=== PATIENT | female | born 1950 | race Caucasian/White ===

== ENCOUNTER 2019-02-19 09:24 | Emergency (ER) | payer MEDICARE ==
[2019-02-19 09:45] VITALS: BP 133/65
--- NOTE | 2019-02-19 10:29 | UC ---
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 States past week, increased pain. 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 Using cane from home now to help with walking. " -this happened several months ago and resolved. then started again last week. has been popping when trying to extend. gave out last night when she had full weight on left leg climbing onto small tractor. -she has no contrindictaion to NSAIDs she reports - History of Current Complaint Chief Complaint: UCLowerExtremity Stated Complaint: LT KNEE COMPLAINT Time Seen by Provider: 02/19/19 09:46 Pain Intensity: 8 - Allergies/Home Medications Allergies/Adverse Reactions: Allergies Allergy/AdvReac Type Severity Reaction Status Date / Time No Known Allergies Allergy Verified 02/19/19 09:38 Home Medications: Home Medications Albuterol HFA INHALER* [Ventolin HFA Inhaler*] 1 - 2 puff INH Q4H PRN 02/19/19 [ History Confirmed 02/19/19] Levothyroxine TAB* [Synthroid TAB*] 50 mcg PO DAILY 02/19/19 [History Confirmed 02/19/19] PMH/Surg Hx/FS Hx/Imm Hx Previously Healthy: Yes Endocrine History: Hypothyroidism - Surgical History Surgical History: Yes Surgery Procedure, Year, and Place: Left eye surgery, cataract surgery left eye , cataract surgery right eye, sinus surgery. - Social History Alcohol Use: None Substance Use Type: None Smoking Status (MU): Never Smoked Tobacco Review of Systems All Other Systems Reviewed And Are Negative: Yes Constitutional: Positive: Negative Skin: Positive: Negative Eyes: Positive: Negative ENT: Positive: Negative Respiratory: Positive: Negative Cardiovascular: Positive: Negative Gastrointestinal: Positive: Negative Genitourinary: Positive: Negative Motor: Positive: Decreased ROM, Weakness Neurovascular: Positive: Negative Musculoskeletal: Positive: Arthralgia, Decreased ROM. Negative: Calf Tenderness Neurological: Positive: Negative Psychological: Positive: Negative Is Patient Immunocompromised?: No Physical Exam Triage Information Reviewed: Yes Appearance: Well-Appearing, No Pain Distress, Well-Nourished Vital Signs: Initial Vital Signs Temp 99 F 02/19/19 09:40 Pulse 95 02/19/19 09:40 Resp 18 07/13/19 09:40 BP 133/65 02/19/19 09:40 Pulse Ox 98 02/19/19 09:40 Eye Exam: Normal Respiratory Exam: Normal Respiratory: Positive: Lungs clear Cardiovascular Exam: Normal Cardiovascular: Positive: RRR Musculoskeletal: Positive: Other: - left knee tneder anteriorly and postreiorly. no calf swelling or tenderness. no erythema. ROM limited d/t pain. Neurological Exam: Normal Psychological Exam: Normal Skin Exam: Normal Knee Pain Course/Dx - Course Course Of Treatment: Left knee xray: negative -ice, rest, crutches/cane to decrease pain - Differential Dx/Diagnosis Differential Diagnosis/HQI/PQRI: Contusion, Dislocation, Sprain, Strain Provider Diagnosis: Left knee pain Discharge - Sign-Out/Discharge Documenting (check all that apply): Patient Departure All imaging exams completed and their final reports reviewed: Yes - Discharge Plan Condition: Stable Disposition: HOME Patient Education Materials: Knee Pain (ED) Referrals: Thea Orozco PA [Primary Care Provider] - Joesph Christie MD [Medical Doctor] - Additional Instructions: There is no fracture on the xray. Ther may be some compromise to the cartilage. ICe 20 mins on/20 mins off. rest. Use your crutches to avoid weight bearing. Follow up with orthopedics for further evaluation. - Billing Disposition and Condition Condition: STABLE Disposition: Home
== END 2019-02-19 11:32 | disposition home or self-care (01) ==
LOC: UCCORT 09:24
DX: M25.562 Pain in left knee (principal); E03.9 Hypothyroidism, unspecified
CPT/HCPCS: 99211; G0463

== ENCOUNTER 2019-05-02 10:09 | Day surgery (SDC) | payer MEDICARE ==
[~2019-05-02 10:09] MED LIST: Buffered Lidocaine 1% SYRIN* 1 ML/SYRINGE INTRADERM ONE; Famotidine IV* 10 MG/ML 2 ML (20 mg) IV ONE; Lactated Ringers 1000 ML Bag* 1,000 ML IV SCH
[2019-05-02] MEDS ORDERED: Famotidine IV* 10 MG/ML 2 ML (20 mg) ONE (10:34)
[2019-05-02] MEDS ORDERED: ceFAZolin 2 GM PREMIX in ORs 2 GM/50 ML BAG ONE (10:34)
[2019-05-02] MEDS ORDERED: Ropivacaine 0.2% * 2 MG/ML VIAL ONE (10:50)
[2019-05-02] MEDS ORDERED: Lidocaine 1% w EPI 1:200,000* SDV 30 ML VIAL ONE (10:51)
[2019-05-02] MEDS ORDERED: Buffered Lidocaine 1% SYRIN* 1 ML/SYRINGE INTRADERM ONE (11:00)
[2019-05-02] MEDS ORDERED: oxyCODONE TAB* 5 MG TAB PO PRN (11:22)
[2019-05-02] MEDS ORDERED: DiMENhydriNATE IV* 50 MG/ML VIAL IV PUSH PRN (11:22)
[2019-05-02] MEDS ORDERED: Acetaminophen TAB* 325 MG PO PRN (11:22)
[2019-05-02] MEDS ORDERED: Naloxone* 0.4 MG/ML 1 ML VIAL IV PRN (11:22)
[2019-05-02] MEDS ORDERED: Midazolam* 1 MG/ML 5 ML VIAL (5 MG) ONE (11:24)
[2019-05-02] MEDS ORDERED: fentaNYL* 50 MCG/ML 2 ML VIAL (100 MCG VIAL) ONE (11:41)
[2019-05-02] MEDS ORDERED: Ketorolac INJ* 30 MG/ML 1 ML VIAL ONE (11:48)
[2019-05-02] MEDS ORDERED: Propofol* 10 MG/ML 20 ML BTL ONE (11:48)
[2019-05-02] MEDS ORDERED: Lidocaine 2% PF * 5 ML VIAL ONE (11:48)
[2019-05-02] MEDS ORDERED: Dexamethasone IV* 4 MG/ML 1 ML (4 MG) ONE (11:48)
[2019-05-02] MEDS ORDERED: DiMENhydriNATE IV* 50 MG/ML VIAL ONE (11:48)
[2019-05-02] MEDS ORDERED: Ondansetron INJ* 2 MG/ML VIAL ONE (11:48)
[2019-05-02 13:44] VITALS: BP 128/98
--- NOTE | 2019-05-02 23:18 | OP ---
CC: PCP * DATE OF OPERATION: 05/02/19 - [facility] DATE OF : 48 SURGEON: Janelle Rodriguez MD METAL POURER: None available. ANESTHESIOLOGIST: Dr. Antony. ANESTHESIA: General. PRE-OP DIAGNOSIS: Left knee Medial meniscus tear. POST-OP DIAGNOSES: Left knee Medial meniscus tear, lateral meniscus fraying, and mild medial arthritis and loose bodies x3. OPERATIVE PROCEDURE: Left knee arthroscopy with 1. removal of loose body x3 2. partial medial and lateral menisectomy 3. chondroplasty medial femoral condyle INDICATIONS: iCntia Alejandro is a 68-year-old female with persistent acute knee pain that has catching and locking. She has tried physical therapy, antiinflammatories, ice, heat, and injection. She has elected to proceed with surgical treatment as she has failed conservative management. After extensive discussion of the risks and benefits of the operative versus nonoperative treatment, she has elected to proceed with surgical treatment. COMPLICATIONS: None. ESTIMATED BLOOD LOSS: Minimal. DESCRIPTION OF PROCEDURE: The patient was greeted in the preoperative area by the attending surgeon. Correct extremity was marked and consent was confirmed. The patient was brought back to the operating suite, placed in supine position on the operating table, then underwent general anesthesia and LMA intubation, after which she was appropriately positioned in the operating table. The lateral post was positioned. Unsterile tourniquet was placed high on the proximal thigh. The left leg was prepped and draped in the usual sterile fashion, beginning with chlorhexidine soap, scrub, and alcohol wipe, and a final prep with ChloraPrep. After appropriate surgical pause indicating side, site, procedure, and administration of antibiotics, the knee was intra-articularly injected with 1% lidocaine with epi. Anterolateral portal was made sharply with a 11 blade. Scope was introduced into the joint. Joint was examined. There was abundant synovitis that was present. Anteromedial portal was made in an outside-in fashion. Shaver was used to debride back the abundant synovitis that was present. The ACL and PCL were intact without any loose debris. There was evidence of small amount of chondrosis about the medial femoral condyle. Again , there were medial plica and lateral plica, these were all debrided back using the shaver. Electrocautery device was used to maintain hemostasis. The scope was positioned in the suprapatellar patch and there were 2 large loose bodies, they were removed using a grasper. These appeared to be cartilage. There were grade 1 changes of the patellofemoral joint with no obvious unstable flaps and grade 0 to 1 changes. The medial and lateral gutters were intact. The medial femoral condyle was examined. There were small areas of grade 2 changes. The medial meniscus body was intact, but the root had tearing, which was debrided back using the rajinder and biters and the knee was then placed in a figure-of- four position and the lateral femoral condyle and lateral plateau were examined , had 0 to 1 changes. There was evidence of loose body trapped under the lateral meniscus, which was removed. Majority of the meniscus was intact, although it was debrided. The lateral meniscus had unstable fraying at the root and the body and this was debrided back using shaver. Once the debridement was complete and the meniscectomy was complete, the synovitis was taken back using shaver and electrocautery device. Hemostasis was obtained. The knee was then thoroughly lavaged. Wounds were then copiously irrigated with sterile saline. The portals were closed with 3-0 nylon in an interrupted fashion. The wound was intra-articularly and superficially injected with 0.2% ropivacaine. Sterile dressings were applied. Cryo/Cuff was applied. She was awoken from anesthesia and transferred to the PACU in stable condition. POSTOPERATIVE PLAN: She will be weightbearing as tolerated, discharged on pain medications. DVT prophylaxis was considered but deferred due to no previous personal or family history. I will see the patient back in 10 to 14 days. [id number]/[facility] #: [id number] ROSEANNA
== END 2019-05-02 13:40 | disposition home or self-care (01) ==
LOC: OREAST 10:09
PROVIDERS: ATTEND Orthopaedic Surgery
DX: S83.242A Other tear of medial meniscus, current injury, left knee, initial encounter (principal); S83.282A Other tear of lateral meniscus, current injury, left knee, initial encounter; X50.0XXA Overexertion from strenuous movement or load, initial encounter; Y92.9 Unspecified place or not applicable; M17.12 Unilateral primary osteoarthritis, left knee; E11.9 Type 2 diabetes mellitus without complications; Z79.84 Long term (current) use of oral hypoglycemic drugs; E03.9 Hypothyroidism, unspecified; J45.909 Unspecified asthma, uncomplicated
CPT/HCPCS: J0690; J1100; J1240; J1885; J2001; J2250; J2405; J2704; J2795; J3010